=== PATIENT | male | born 2000 | race Caucasian/White ===

== ENCOUNTER 2024-03-25 16:13 | Emergency (ER) | payer MEDICAID ==
[~2024-03-25] VITALS: Ht 167.6 cm; Wt 83.9 kg
[2024-03-25 16:18] VITALS: BP_SYST 120; PULSE 103; RESP 16; TEMP 97.3; O2SAT 92
[2024-03-25] MEDS: IPRATROPIUM/ALBUTEROL SULFATE 3 ML AMPUL.NEB (DUONEB) INH ONE (17:17)
[2024-03-25] MEDS ORDERED: METH-776 PO (17:59)
[2024-03-25] MEDS: predniSONE 20 MG TABLET PO ONE (18:12)
[2024-03-25 18:14] VITALS: BP_SYST 120; PULSE 103; RESP 16; TEMP 97.3; O2SAT 92
== END 2024-03-25 18:16 | disposition home or self-care (01) ==
LOC: SED 16:13
DX: J45.901 Unspecified asthma with (acute) exacerbation (principal)
CPT/HCPCS: 94640; 94760; 99283